=== PATIENT | male | born 2000 | race Asian ===

== ENCOUNTER 2023-04-05 12:10 | Emergency (ER) | payer MEDICAID ==
[~2023-04-05] VITALS: Ht 180.3 cm; Wt 81.6 kg
[2023-04-05 14:01] VITALS: BP 134/81; PULSE 84; RESP 16; TEMP 97.9; O2SAT 100
--- NOTE | 2023-04-05 15:05 | NUR ---
I have reviewed and agree with all interventions, assessments performed and documented by Brady FOSTER LVN.
== END 2023-04-05 14:03 | disposition home or self-care (01) ==
LOC: ER 12:11
DX: S61.012A Laceration without foreign body of left thumb without damage to nail, initial encounter (principal); W45.8XXA Other foreign body or object entering through skin, initial encounter; Y93.89 Activity, other specified; Y92.89 Other specified places as the place of occurrence of the external cause; Y99.8 Other external cause status
CPT/HCPCS: 12001; 99282

== ENCOUNTER 2023-05-03 09:09 | Emergency (ER) | payer MEDICAID ==
[~2023-05-03] VITALS: Ht 182.9 cm; Wt 82.8 kg
[2023-05-03 09:10] VITALS: BP 135/90; PULSE 83; RESP 16; TEMP 98; O2SAT 98
[2023-05-03 09:45] LABS: BILIRUBIN,URINE NEGATIVE (Neg); CLARITY,URINE CLEAR (Clear); COLOR,URINE STRAW (Yellow); GLUCOSE, URINE NEGATIVE (Neg); KETONES,URINE NEGATIVE (Neg); LEUKOCYTE ESTERASE ,URINE NEGATIVE (Neg); OCCULT BLOOD,URINE NEGATIVE (Neg); PROTEIN,URINE NEGATIVE (Neg); UROBILINOGEN,URINE 0.2 E.U/dL (0.2-1.0)
[2023-05-03 09:57] LABS: UA COLLECTION TYPE CLN CATCH MIDSTREAM
[2023-05-03 09:59] LABS: BACTERIA,URINE FEW /HPF (Neg); NITRITES, URINE NEGATIVE (Neg); RBC,URINE 0-2 /HPF (0-2); SQUAMOUS EPITHELIAL CELL,UR FEW /LPF (FEW); WBC,URINE 0-4 /HPF (0-4)
[2023-05-03 10:18] LABS: BASOPHILS % (AUTO) 0.7 % (0-1); EOSINOPHILS # (AUTO) 0.1 X10'3 (0-0.9); EOSINOPHILS % (AUTO) 1.1 % (0-6); HEMATOCRIT 47.6 % (42.0-52.0); HEMOGLOBIN 16.1 g/dl (14.0-17.9); LYMPHOCYTES # (AUTO) 1.9 X10'3 (1.1-4.8); LYMPHOCYTES % (AUTO) 40.4 % (21-51); MEAN CORPUSCULAR HEMOGLOBIN 30.1 PG (27.0-31.0); MEAN CORPUSCULAR HGB CONC 33.7 g/dL (33.0-36.5); MEAN CORPUSCULAR VOLUME 89.3 FL (78-98); MEAN PLATELET VOLUME 8.8 FL (7.4-10.4); MONOCYTES # (AUTO) 0.3 X10'3 (0-0.9); MONOCYTES % (AUTO) 6.9 % (2-12); NEUTROPHILS # (AUTO) 2.4 X10'3 (1.8-7.7); NEUTROPHILS % (AUTO) 50.9 % (42-75); PLATELET COUNT 199 X10'3 (140-440); RED BLOOD COUNT 5.34 X10'6 (4.70-6.10); RED CELL DISTRIBUTION WIDTH 13.4 % (11.5-14.5); WHITE BLOOD COUNT 4.7 X10'3 (4.5-11.0)
[2023-05-03 10:31] LABS: ALANINE AMINOTRANSFERASE 34 U/L (12-78); ALBUMIN 4.5 G/DL (3.4-5.0); ALBUMIN/GLOBULIN RATIO 1.3 (1.1-1.5); ALKALINE PHOSPHATASE 74 IU/L (46-116); ANION GAP 10 (8-16); ASPARTATE AMINO TRANSFERASE 26 U/L (10-37); BILIRUBIN,TOTAL 1.2 MG/DL (0.1-1.0); BLOOD UREA NITROGEN 7 MG/DL (7-18); BUN/CREATININE RATIO 6.2 (10.0-20.0); CALCIUM 9.5 MG/DL (8.5-10.1); CHLORIDE 103 MMOL/L (99-107); CREATININE 1.13 MG/DL (0.60-1.10); GLUCOSE 107 MG/DL (70-104); LIPASE 39 U/L (16-77); POTASSIUM 3.6 MMOL/L (3.5-5.1); SODIUM 140 MMOL/L (135-145); TOTAL CARBON DIOXIDE 26.9 MMOL/L (24-32); TOTAL PROTEIN 7.9 G/DL (6.4-8.2); eCRCL 113 ML/MIN; eGFR 81 ML/MIN
== END 2023-05-03 11:16 | disposition home or self-care (01) ==
LOC: ER 09:09
DX: R10.11 Right upper quadrant pain (principal)
CPT/HCPCS: 36415; 80053; 81001; 83690; 85025; 99283

== ENCOUNTER 2023-07-06 18:39 | Emergency (ER) | payer MEDICAID, OTHER ==
[~2023-07-06] VITALS: Ht 185.4 cm; Wt 81.8 kg
[2023-07-06 18:47] VITALS: BP 122/78; PULSE 74; RESP 18; TEMP 97.5; O2SAT 98
[2023-07-06] MEDS ORDERED: OMEP40CA21 PO (20:13)
[2023-07-06] MEDS: dexamethasone sod phosphate 10mg/ml inj PO STA (20:27)
== END 2023-07-06 20:33 | disposition home or self-care (01) ==
LOC: ER 18:41
DX: K21.9 Gastro-esophageal reflux disease without esophagitis (principal); R06.6 Hiccough; R63.0 Anorexia
CPT/HCPCS: 99283; J1100